=== PATIENT | male | born 1975 | race Caucasian/White ===

== ENCOUNTER 2021-04-04 22:29 | Emergency (ER) | payer OTHER ==
[~2021-04-04 22:29] MED LIST: ALDACTONE25 MG PO; ASPIRIN CHEWABL81 MG PO; CLOPIDOGREL75 MG PO; COREG 6.25MG6.25 MG PO; LISINOPRIL 2.52.5 MG PO; RANEXA500 MG PO
[2021-04-04 23:00] LABS: HCT 55.4 % (42.0-52.0); HGB 18.4 g/dl (13.2-18.0); MCH 30.4 pg (25.0-31.0); MCHC 33.2 g/dL (32.0-36.0); MCV 91.6 fL (78.0-100.0); MPV 11.3 fL (6.0-9.5); RBC 6.05 M/uL (4.70-6.00); RDW 13.1 % (11.5-14.0); WBC 22.2 K/uL (4.0-10.5)
[2021-04-04 23:14] LABS: ALBUMIN 4.4 g/dL (3.4-5.0); BILIRUBIN - TOTAL 0.5 mg/dL (0.2-1.0); BUN/CREAT RATIO (CALC) 11.4 RATIO; CREATININE 1.85 mg/dL (0.67-1.17); TOTAL PROTEIN 8.4 g/dL (6.4-8.2)
[2021-04-05 02:07] LABS: BUN/CREAT RATIO (CALC) 15.3 RATIO; CREATININE 1.37 mg/dL (0.67-1.17); POTASSIUM 4.6 mmol/L (3.5-5.1)
[2021-04-05 02:16] LABS: BILIRUBIN NEGATIVE (NEGATIVE); BLOOD NEGATIVE Ery/uL (NEGATIVE); CLARITY CLEAR (CLEAR); COLOR YELLOW (YELLOW); GLUCOSE (U) TRACE mg/dL (NORMAL); LEUKOCYTES NEGATIVE Leu/uL (NEGATIVE); NITRITE NEGATIVE (NEGATIVE); PROTEIN TRACE (LOW) mg/dL (NEGATIVE); SPECIFIC GRAVITY 1.025 (1.001-1.030); pH 5.5 (5.0-9.0)
[2021-04-05 02:24] LABS: BACTERIA TRACE; ECSTASY (MDMA) NEGATIVE (NEGATIVE); MARIJUANA (THC) NEGATIVE (NEGATIVE); METHADONE NEGATIVE (NEGATIVE)
[2021-04-05 02:25] LABS: AMPHETAMINES POSITIVE (NEGATIVE); BARBITURATES NEGATIVE (NEGATIVE); OPIATES NEGATIVE (NEGATIVE); OXYCODONE NEGATIVE (NEGATIVE)
== END 2021-04-05 02:50 | disposition home or self-care (01) ==
LOC: FER 22:29
PROVIDERS: Emergency Medicine
DX: T40.2X1A Poisoning by other opioids, accidental (unintentional), initial encounter (principal); R40.4 Transient alteration of awareness; N17.9 Acute kidney failure, unspecified; I25.10 Atherosclerotic heart disease of native coronary artery without angina pectoris; F17.200 Nicotine dependence, unspecified, uncomplicated; Z23 Encounter for immunization; Z95.0 Presence of cardiac pacemaker; Z86.711 Personal history of pulmonary embolism; Z82.49 Family history of ischemic heart disease and other diseases of the circulatory system; Y92.9 Unspecified place or not applicable
CPT/HCPCS: 36415; 70450; 71260; 80048; 80053; 80305; 81001; 83690; 90471; 90715; J7030; Q9967